=== PATIENT | female | born 2000 ===

== ENCOUNTER 2022-11-27 22:07 | Outpatient (CLI) | payer BC ==
[~2022-11-27] VITALS: Ht 162 cm; Wt 73.6 kg
[2022-11-27 22:32] VITALS: BP 126/59
[2022-11-27 22:34] LABS: BILIRUBIN,URINE NEGATIVE (NEGATIVE); CLARITY,URINE CLEAR; COLOR,URINE YELLOW; GLUCOSE, URINE (UA) NEGATIVE (NEGATIVE); KETONES,URINE NEGATIVE (NEGATIVE); LEUKOCYTE ESTERASE ,URINE NEGATIVE (NEGATIVE); NITRITE,URINE NEGATIVE (NEGATIVE); PROTEIN,URINE NEGATIVE (NEGATIVE)
[2022-11-27] MEDS ORDERED: PREN1TAB19 PO (22:36)
[2022-11-27 22:48] LABS: BACTERIA,URINE TRACE /HPF; SQUAMOUS EPITHELIAL CELL,UR 0-2 /HPF
[2022-11-27 23:25] VITALS: BP 122/67
--- NOTE | 2022-11-28 08:52 | Physician Query-Final Dx ---
Clinic Account Progress/Dx Physician Query: Please give diagnosis Please include # weeks gestation Date of Service Nov 27, 2022 at 22:07 GABINO,AugNov 28, 2022 08:52
== END 2022-11-27 23:30 | disposition home or self-care (01) ==
LOC: LDRP 22:07 → WSo 22:07
PROVIDERS: ATTEND Family Medicine
DX: Z34.92 Encounter for supervision of normal pregnancy, unspecified, second trimester (principal); Z3A.24 24 weeks gestation of pregnancy
CPT/HCPCS: 81000; 99213

== ENCOUNTER 2022-12-20 23:30 | Outpatient (CLI) | payer BC ==
[~2022-12-20] VITALS: Ht 157.5 cm; Wt 75.1 kg
[~2022-12-20 23:30] MED LIST: PREN1TAB19 PO
[2022-12-20 23:57] VITALS: BP 117/56
[2022-12-21 00:01] LABS: BILIRUBIN,URINE NEGATIVE (NEGATIVE); CLARITY,URINE CLEAR; COLOR,URINE YELLOW; GLUCOSE, URINE (UA) NEGATIVE (NEGATIVE); KETONES,URINE NEGATIVE (NEGATIVE); LEUKOCYTE ESTERASE ,URINE 1+ (NEGATIVE); NITRITE,URINE NEGATIVE (NEGATIVE); PROTEIN,URINE NEGATIVE (NEGATIVE)
[2022-12-21 00:10] LABS: AMORPHOUS SEDIMENT,UR FEW AMOR URATES /LPF; BACTERIA,URINE MODERATE /HPF; RBC,URINE 0-2 /HPF; SQUAMOUS EPITHELIAL CELL,UR 25-50 /HPF
[2022-12-21 00:25] VITALS: BP 95/59
--- NOTE | 2022-12-23 08:39 | Physician Query-Final Dx ---
GABINO12/23/22 0839: Clinic Account Progress/Dx Physician Query: Please give diagnosis Please include # weeks gestation Date of Service December 20, 2022 at 23:30 KATHERYN WOLFE DO 12/23/22 0913: Clinic Account Progress/Dx DIAGNOSIS: Diagnosis 27wk GA decreased movement - resolved; reassuring FHT GABINO,AugDecember 23, 2022 08:39 KATHERYN WOLFE DO December 23, 2022 09:13
== END 2022-12-21 00:31 | disposition home or self-care (01) ==
LOC: WSo 23:30 → LDRP 23:32 → WSo 12-21 00:31
PROVIDERS: ATTEND Family Medicine
DX: O26.892 Other specified pregnancy related conditions, second trimester (principal); R10.9 Unspecified abdominal pain; Z3A.27 27 weeks gestation of pregnancy
CPT/HCPCS: 81000

== ENCOUNTER 2023-02-01 18:06 | Emergency (ER) | payer BC ==
[~2023-02-01] VITALS: Ht 152 cm; Wt 73.0 kg
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
[2023-02-01 19:48] VITALS: BP 128/85
== END 2023-02-01 19:48 | disposition home or self-care (01) ==
LOC: EDUNIT# 18:06 → ER 18:09
DX: O9A.213 Injury, poisoning and certain other consequences of external causes complicating pregnancy, third trimester (principal); S30.811A Abrasion of abdominal wall, initial encounter; Z3A.34 34 weeks gestation of pregnancy; V43.52XA Car driver injured in collision with other type car in traffic accident, initial encounter; Y92.410 Unspecified street and highway as the place of occurrence of the external cause

== ENCOUNTER 2023-02-02 01:45 | Outpatient (CLI) | payer BC ==
[~2023-02-02] VITALS: Ht 157 cm; Wt 76.9 kg
[2023-02-02 01:53] VITALS: BP 110/67
== END 2023-02-02 03:07 | disposition home or self-care (01) ==
LOC: WSo 01:45 → LDRP 01:48 → WSo 03:07
PROVIDERS: ATTEND Family Medicine
DX: Z34.93 Encounter for supervision of normal pregnancy, unspecified, third trimester (principal); Z3A.34 34 weeks gestation of pregnancy; V89.2XXA Person injured in unspecified motor-vehicle accident, traffic, initial encounter
CPT/HCPCS: 99213

== ENCOUNTER 2023-03-09 04:25 | Inpatient (IN) | payer BC ==
[~2023-03-09] VITALS: Ht 157.5 cm; Wt 77.5 kg
[2023-03-09] VITALS (70 sets, daily range): BP systolic 89–135; BP diastolic 53–86
[2023-03-09] MEDS ORDERED: MINERAL OIL 30 ML UDC TOP PRN (05:30)
[2023-03-09] MEDS ORDERED: D5 LR 1,000 ML IV SOLN 1,000 ML IV ONE (05:40)
[2023-03-09] MEDS: D5 LR 1,000 ML IV SOLN 1,000 ML IV SCH ×2 (05:47→13:36)
[2023-03-09 05:50] LABS: BASOPHILS % (AUTO) 1 % (0-10); EOSINOPHILS # (AUTO) 0.1 10^3/uL (0.0-0.3); EOSINOPHILS % (AUTO) 2 % (0-10); HEMATOCRIT 32 % (35-52); HEMOGLOBIN 10.7 g/dL (11.5-16.0); LYMPHOCYTES # (AUTO) 2.4 10^3/uL (1.0-4.0); LYMPHOCYTES % (AUTO) 29 % (12-44); MEAN CORPUSCULAR HEMOGLOBIN 27 pg (25-34); MEAN CORPUSCULAR HGB CONC 34 g/dL (32-36); MEAN CORPUSCULAR VOLUME 79 fL (80-99); MEAN PLATELET VOLUME 10.8 fL (9.0-12.2); MONOCYTES # (AUTO) 0.8 10^3/uL (0.0-1.0); MONOCYTES % (AUTO) 10 % (0-12); NEUTROPHILS # (AUTO) 4.9 10^3/uL (1.8-7.8); NEUTROPHILS % (AUTO) 59 % (42-75); PLATELET COUNT 216 10^3/uL (130-400); WHITE BLOOD COUNT 8.3 10^3/uL (4.3-11.0)
[2023-03-09] MEDS ORDERED: CATHETER FLUSH 10 ML SYR IV SCH ×2 (06:00→22:00)
[2023-03-09] MEDS ORDERED: OXYTOCIN PRE-MIX DRIP 500 ML IV ONE (08:19)
[2023-03-09] MEDS: OXYTOCIN PRE-MIX DRIP 500 ML IV SCH ×2 (08:31→21:20)
--- NOTE | 2023-03-09 08:57 | History & Physical-OB ---
OB - Chief Complaint & HPI Date/Time Date of Admission: Date of Admission: Mar 09, 2023 at 05:04 Date seen by a Provider: Mar 09, 2023 Time Seen by a Provider: 07:00 Chief Complaint/History OB-Reason for Admission/Chief: Rupture of Membranes Hx : 1 Expected Date of Delivery: Mar 16, 2023 Gestational Age in Weeks: 39 Gestational Age in Days: 0 Other reason for admission: Patient presented after a gush of clear fluid around 200 AM. She is having some contractions but pain is well controlled. + FM. Allergies and Home Medications Allergies Coded Allergies: No Known Drug Allergies (Unverified , 11/27/22) Patient Home Medication List Home Medication List Reviewed: Yes Vit/Iron Fumarate/FA ( Vitamins Tablet) 28 Mg Iron-800 Mcg Tablet, 1 EACH PO DAILY, (Reported) Entered as Reported by: Ely Childs on 11/27/222235 Last Action: Reviewed OB - History Hx of Present Care: Yes Ultrasounds: Normal mid trimester US Obstetrical Complications: None Medical Complications: None Obstetrical History Hx : 1 Patient Past Medical History N/A Social History/Family History Alcohol Use: Denies Use Recreational Drug Use: No Smoking Cessation: Never smoker 2nd Hand Smoke Exposure: No Immunizations Influenza Vaccine Up-to-Date: Yes; Up-to-Date First/Initial COVID19 Vaccine: YES Second COVID19 Vaccination: YES Rubella: immune RPR/VDRL: Negative GBS Status: Negative HBsAG: Negative OB - Admission Exam Physical Exam Vitals: Vital Signs 03/09/23 03/09/23 05:48 06:20 Temp 36.6 Pulse 68 Resp 18 B/P (MAP) 102/68 (79) Pulse Ox 97 O2 Delivery Room Air HEENT: NCAT Heart: Rhythm Normal Lungs: Clear Abdomen: Gravid Cervical Dilatation: 3cm Effacement: 75% Station: -1 Membranes: Ruptured Amniotic Fluid: Clear Heart Rate: 130's Accelerations: Accelerations Present Decelerations: No Decelerations Short Term Variability: Present Shelter Variability: Average (6-25) Contractions on Admission: >10 Minutes Apart Intensity: Moderate Labs Laboratory Tests Test 03/09/23 05:30 Range/Units White Blood Count 8.3 4.3-11.0 10^3/uL Red Blood Count 4.00 3.80-5.11 10^6/uL Hemoglobin 10.7 L 11.5-16.0 g/dL Hematocrit 32 L 35-52 % Mean Corpuscular Volume 79 L 80-99 fL Mean Corpuscular Hemoglobin 27 25-34 pg Mean Corpuscular Hemoglobin Concent 34 32-36 g/dL Red Cell Distribution Width 13.3 10.0-14.5 % Platelet Count 216 130-400 10^3/uL Mean Platelet Volume 10.8 9.0-12.2 fL Immature Granulocyte % (Auto) 0 % Neutrophils (%) (Auto) 59 42-75 % Lymphocytes (%) (Auto) 29 12-44 % Monocytes (%) (Auto) 10 0-12 % Eosinophils (%) (Auto) 2 0-10 % Basophils (%) (Auto) 1 0-10 % Neutrophils # (Auto) 4.9 1.8-7.8 10^3/uL Lymphocytes # (Auto) 2.4 1.0-4.0 10^3/uL Monocytes # (Auto) 0.8 0.0-1.0 10^3/uL Eosinophils # (Auto) 0.1 0.0-0.3 10^3/uL Basophils # (Auto) 0.0 0.0-0.1 10^3/uL Immature Granulocyte # (Auto) 0.0 0.0-0.1 10^3/uL Syphilis Total Antibody Negative Negative OB - Assessment/Plan/Diagnosis Assessment Assessment: active labor, rupture of membranes Admission Dx Third trimester 39 week gestation SROM Admission Status: Inpatient Order (span 2 midnights) Reason for Inpatient Admission: SROM at home Plan Other Plan 22 yo G1 @ 39.0 wga here with SROM Plan - GBS neg - No change since arrival, ctxs every 10-12 mins, will augment with pitocin - Expect Vaginal delivery - Pain well controlled and patient unsure about epidural ERICA ROSS MD Mar 09, 2023 08:57
[2023-03-09] MEDS ORDERED: LIDOCAINE/EPI 2% 1:200,00 (XYLOCAINE) 20 ML VIAL ONE (13:18)
[2023-03-09] MEDS ORDERED: LACTATED RINGERS 1,000 ML IV ONE (13:51)
[2023-03-09] MEDS ORDERED: fentaNYL 2 mcg/ml BUPIVA 0.125 100 ML ONE (13:51)
[2023-03-09] MEDS ORDERED: BUTORPHANOL INJ 2 MG/ML VIAL IV ONE (14:15)
[2023-03-09] MEDS ORDERED: fentaNYL 2 mcg/ml BUPIVA 0.125 100 ML EPI SCH (14:45)
[2023-03-09] MEDS ORDERED: METOCLOPRAMIDE INJ 10 MG/2 ML (REGLAN) IV PRN (14:45)
[2023-03-09] MEDS ORDERED: LACTATED RINGERS 1,000 ML IV SCH (14:45)
[2023-03-09] MEDS ORDERED: diphenhydrAMINE INJ 50 MG/ML VIAL IV PRN (14:45)
[2023-03-09] MEDS ORDERED: ONDANSETRON 4 MG/2 ML (SDV) Z0FRAN IV PRN (14:45)
[2023-03-09] MEDS ORDERED: NALOXONE 0.4 MG/ML 1 ML (NARCAN) VIAL IV PRN ×2 (14:45)
--- NOTE | 2023-03-09 21:53 | OB Labor & Delivery Record ---
Vag Delivery Note Vag Delivery Note Date of Delivery: 03/09/23 Preoperative Diagnosis: Olga Montelongo is a 22 /Para / ,Gestational Age (wks)39with 0 days Postoperative Diagnosis: Same Surgeon: IRA GREGG Anesthesia: Epidural Delivery Type: Findings: Viable female , apgars 8/9, weight pending Lacerations: bilateral periurethral Intact placenta with 3 vessel cord. No nuchal cord, body cord or shoulder dystocia Estimated Blood Loss: 500 ml Complications: None Condition: Stable Description of Procedure: The patient is a 22 year old female who presented with spontaneous prelabor rupture of membranes. She was admitted and informed consent was obtained. Her labor course was remarkable for augmentation with pitocin. She progressed to complete dilatation and began to push. She was then set up for delivery. The infant's head was delivered atraumatically in the ELAYNE position. The shoulders and remainder of the 's body were then delivered without difficulty. Upon delivery, the infant was vigorous and placed on maternal chest and the mouth and nares were bulb suctioned. After a delay cord was doubly clamped and cut and the remained on maternal chest. An intact placenta with 3-vessel cord delivered via Armando and there was found to be minimal bleeding from the uterus.~ Vigorous fundal massage was performed and the fundus was found to be firm. IV oxytocin was given. Examination of the vagina and perineum revealed bilateral periurethral lacerations, one on the right bleeding briskly, repaired in the usual fashion with 3-0 vicryl rapide suture. Following the repair, sponge, instrument and needle counts were correct. Mom and baby were both in stable condition in the labor suite. Vitals - Labs Vital Signs - I&O Vital Signs Date Time Temp Pulse Resp B/P (MAP) Pulse Ox O2 Delivery O2 Flow Rate FiO2 03/09/23 20:17 37.2 63 18 113/73 (86) 99 Room Air 03/09/23 20:00 74 18 115/79 (91) 100 Room Air 03/09/23 19:45 67 18 118/75 (89) 98 Room Air 03/09/23 19:30 70 18 110/70 (83) 99 Room Air 03/09/23 19:16 75 18 109/69 (82) 99 Room Air 03/09/23 19:00 37.0 68 18 113/65 (81) 99 Room Air 03/09/23 18:46 59 18 101/65 (77) 98 Room Air 03/09/23 18:30 63 18 103/57 (72) 98 Room Air 03/09/23 18:17 60 18 101/59 (73) 98 Room Air 03/09/23 18:00 62 18 111/57 (75) 99 Room Air 03/09/23 17:46 57 18 103/63 (76) 98 Room Air 03/09/23 17:31 62 18 98/62 (74) 97 Room Air 03/09/23 17:15 61 18 90/57 (68) 98 Room Air 03/09/23 17:01 54 18 105/59 (74) 98 Room Air 03/09/23 16:53 36.8 03/09/23 16:45 61 18 101/71 (81) 98 Room Air 03/09/23 16:30 53 18 100/64 (76) 98 Room Air 03/09/23 16:16 53 18 102/65 (77) 98 Room Air 03/09/23 16:01 68 18 109/60 (76) 98 Room Air 03/09/23 15:46 63 18 100/64 (76) 98 Room Air 03/09/23 15:30 56 18 99/56 (70) 98 Room Air 03/09/23 15:13 36.7 63 18 89/57 (68) 98 Room Air 03/09/23 15:09 59 18 104/56 (72) 98 Room Air 03/09/23 15:06 66 18 92/53 (66) 97 Room Air 03/09/23 14:59 65 18 97/56 (70) 98 Room Air 03/09/23 14:54 86 18 97/59 (72) 98 Room Air 03/09/23 14:45 64 18 102/56 (71) Room Air 03/09/23 14:42 36.7 72 18 102/57 (72) 98 Room Air 03/09/23 14:39 77 18 106/58 (74) 98 Room Air 03/09/23 14:36 72 18 101/63 (76) 98 Room Air 03/09/23 14:33 36.8 67 18 102/60 (74) 99 Room Air 03/09/23 14:31 76 18 111/67 (82) 99 Room Air 03/09/23 14:27 82 18 111/75 (87) 99 Room Air 03/09/23 14:24 76 18 114/76 (89) 99 Room Air 03/09/23 14:21 60 18 110/78 (89) Room Air 03/09/23 14:18 70 18 129/80 (96) 99 Room Air 03/09/23 14:16 71 18 135/72 (93) Room Air 03/09/23 14:00 78 18 117/73 (88) Room Air 03/09/23 13:45 71 18 122/86 (98) Room Air 03/09/23 13:27 37.0 03/09/23 13:15 75 18 121/75 (90) Room Air 03/09/23 13:00 86 18 116/67 (83) Room Air 03/09/23 12:30 64 18 112/54 (73) Room Air 03/09/23 12:01 36.7 57 18 107/57 (74) Room Air 03/09/23 11:46 68 18 117/56 (76) Room Air 03/09/23 11:30 69 18 107/56 (73) Room Air 03/09/23 11:15 67 18 107/58 (74) Room Air 03/09/23 11:00 58 18 98/53 (68) Room Air 03/09/23 10:47 36.6 64 18 108/56 (73) Room Air 03/09/23 10:30 59 18 109/66 (80) Room Air 03/09/23 10:16 78 18 112/69 (83) Room Air 03/09/23 10:00 56 18 110/70 (83) Room Air 03/09/23 09:45 57 18 111/74 (86) Room Air 03/09/23 09:30 59 18 118/78 (91) Room Air 03/09/23 09:16 96 18 126/72 (90) Room Air 03/09/23 09:00 65 18 112/70 (84) Room Air 03/09/23 08:46 67 18 124/73 (90) Room Air 03/09/23 08:27 36.6 63 18 111/71 (84) Room Air 03/09/23 06:20 68 18 102/68 (79) 97 Room Air 03/09/23 05:48 36.6 67 18 111/72 (85) 98 Room Air 03/09/23 05:04 36.7 79 18 113/77 97 Room Air 03/09/23 04:40 36.7 79 18 97 Room Air Labs Laboratory Tests 03/09/23 05:30: White Blood Count 8.3, Red Blood Count 4.00, Hemoglobin 10.7L, Hematocrit 32L, Mean Corpuscular Volume 79L, Mean Corpuscular Hemoglobin 27, Mean Corpuscular Hemoglobin Concent 34, Red Cell Distribution Width 13.3, Platelet Count 216, Mean Platelet Volume 10.8, Immature Granulocyte % (Auto) 0, Neutrophils (%) (Auto) 59, Lymphocytes (%) (Auto) 29, Monocytes (%) (Auto) 10, Eosinophils (%) (Auto) 2, Basophils (%) (Auto) 1, Neutrophils # (Auto) 4.9, Lymphocytes # (Auto) 2.4, Monocytes # (Auto) 0.8, Eosinophils # (Auto) 0.1, Basophils # (Auto) 0.0, Immature Granulocyte # (Auto) 0.0, Syphilis Total Antibody Negative IRA GREGG MD Mar 09, 2023 21:53
[2023-03-09] MEDS ORDERED: BENZOCAINE/MENTHOL (DERMOPLAST) 56 ML CAN TP PRN (22:00)
[2023-03-09] MEDS ORDERED: ACETAMINOPHEN 500 MG TABLET PO PRN (22:00)
[2023-03-09] MEDS ORDERED: WITCH HAZEL(TUCKS) 40 EA JAR TOP PRN (22:00)
[2023-03-09] MEDS ORDERED: OXYTOCIN PRE-MIX DRIP 500 ML IV SCH (22:00)
[2023-03-09] MEDS: IBUPROFEN 600 MG (MOTRIN) TAB PO SCH (23:43)
[2023-03-10 04:03] VITALS: BP 111/52
[2023-03-10 05:44] LABS: BASOPHILS % (AUTO) 0 % (0-10); EOSINOPHILS # (AUTO) 0.1 10^3/uL (0.0-0.3); EOSINOPHILS % (AUTO) 1 % (0-10); HEMATOCRIT 26 % (35-52); HEMOGLOBIN 8.8 g/dL (11.5-16.0); LYMPHOCYTES # (AUTO) 2.2 10^3/uL (1.0-4.0); LYMPHOCYTES % (AUTO) 18 % (12-44); MEAN CORPUSCULAR HEMOGLOBIN 27 pg (25-34); MEAN CORPUSCULAR HGB CONC 34 g/dL (32-36); MEAN CORPUSCULAR VOLUME 79 fL (80-99); MEAN PLATELET VOLUME 10.7 fL (9.0-12.2); MONOCYTES # (AUTO) 0.9 10^3/uL (0.0-1.0); MONOCYTES % (AUTO) 8 % (0-12); NEUTROPHILS # (AUTO) 8.6 10^3/uL (1.8-7.8); NEUTROPHILS % (AUTO) 72 % (42-75); PLATELET COUNT 167 10^3/uL (130-400); WHITE BLOOD COUNT 11.9 10^3/uL (4.3-11.0)
[2023-03-10] MEDS: PRENATAL VITAMIN 1 EA TAB PO SCH (06:27)
[2023-03-10] MEDS: IBUPROFEN 600 MG (MOTRIN) TAB PO SCH ×3 (06:27→18:49)
[2023-03-10 08:34] VITALS: BP 111/72
[2023-03-10] MEDS: DOCUSATE SODIUM 100 MG CAPSULE PO SCH ×2 (08:35→21:25)
--- NOTE | 2023-03-10 09:18 | Anesthesia-Regional Post-Op ---
Regional Patient Condition Mental Status: Alert, Oriented x3 Circulation: Same as Pre-Op Headache: Absent Sensation: Full Recovery Motor Block: Absent Post Op Complications Complications None Follow Up Care/Instructions Patient Instructions None needed. Anesthesia/Patient Condition Patient is doing well, no complaints, stable vital signs, no apparent adverse anesthesia problems. No complications reported per nursing. CALVIN SOLIS CRNA Mar 10, 2023 09:18
--- NOTE | 2023-03-10 12:18 | Postpartum Progress Note ---
Note Note Day # 1 Subjective: Patient is without complaints. Ambulating, voiding. Tolerating a regular diet without nausea or vomiting. Normal lochia. Pain is well controlled with oral pain medications. Breast feeding. Objective: Physical Exam: General - Alert and oriented, no apparent distress Abdomen - Soft, appropriately tender to palpation, non-distended, fundus firm at umbilicus Extremities - no edema, negative Kym's bilaterally Assessment: 22 yo G1 now P1 post- day # 1, status post spontaneous vaginal delivery. Recovering well, hemodynamically stable Asymptomatic Anemia of acute blood loss Plan: Routine care. Encourage breast feeding, consult placed Encourage ambulation. Venofer x1 dose ordered today Plan for d.c tomorrow AM and 6 week f.u with [facility] Vitals - Labs Vital Signs - I&O Vital Signs Date Time Temp Pulse Resp B/P (MAP) Pulse Ox O2 Delivery O2 Flow Rate FiO2 03/10/23 08:34 36.5 84 18 111/72 (85) 99 Room Air 03/10/23 04:03 36.3 84 18 111/52 (71) 98 Room Air 03/09/23 22:45 99 18 120/77 (91) Room Air 03/09/23 22:30 71 18 111/66 (81) Room Air 03/09/23 22:15 60 18 110/69 (83) Room Air 03/09/23 22:00 75 18 114/63 (80) Room Air 03/09/23 21:45 75 18 114/63 (80) Room Air 03/09/23 21:30 68 18 112/69 (83) 99 Room Air 03/09/23 21:15 82 18 112/70 (84) 99 Room Air 03/09/23 21:00 84 18 121/75 (90) 99 Room Air 03/09/23 20:45 83 18 120/76 (91) 100 Room Air 03/09/23 20:30 62 18 117/78 (91) 99 Room Air 03/09/23 20:17 37.2 63 18 113/73 (86) 99 Room Air 03/09/23 20:00 74 18 115/79 (91) 100 Room Air 03/09/23 19:45 67 18 118/75 (89) 98 Room Air 03/09/23 19:30 70 18 110/70 (83) 99 Room Air 03/09/23 19:16 75 18 109/69 (82) 99 Room Air 03/09/23 19:00 37.0 68 18 113/65 (81) 99 Room Air 03/09/23 18:46 59 18 101/65 (77) 98 Room Air 03/09/23 18:30 63 18 103/57 (72) 98 Room Air 03/09/23 18:17 60 18 101/59 (73) 98 Room Air 03/09/23 18:00 62 18 111/57 (75) 99 Room Air 03/09/23 17:46 57 18 103/63 (76) 98 Room Air 03/09/23 17:31 62 18 98/62 (74) 97 Room Air 03/09/23 17:15 61 18 90/57 (68) 98 Room Air 03/09/23 17:01 54 18 105/59 (74) 98 Room Air 03/09/23 16:53 36.8 03/09/23 16:45 61 18 101/71 (81) 98 Room Air 03/09/23 16:30 53 18 100/64 (76) 98 Room Air 03/09/23 16:16 53 18 102/65 (77) 98 Room Air 03/09/23 16:01 68 18 109/60 (76) 98 Room Air 03/09/23 15:46 63 18 100/64 (76) 98 Room Air 03/09/23 15:30 56 18 99/56 (70) 98 Room Air 03/09/23 15:13 36.7 63 18 89/57 (68) 98 Room Air 03/09/23 15:09 59 18 104/56 (72) 98 Room Air 03/09/23 15:06 66 18 92/53 (66) 97 Room Air 03/09/23 14:59 65 18 97/56 (70) 98 Room Air 03/09/23 14:54 86 18 97/59 (72) 98 Room Air 03/09/23 14:45 64 18 102/56 (71) Room Air 03/09/23 14:42 36.7 72 18 102/57 (72) 98 Room Air 03/09/23 14:39 77 18 106/58 (74) 98 Room Air 03/09/23 14:36 72 18 101/63 (76) 98 Room Air 03/09/23 14:33 36.8 67 18 102/60 (74) 99 Room Air 03/09/23 14:31 76 18 111/67 (82) 99 Room Air 03/09/23 14:27 82 18 111/75 (87) 99 Room Air 03/09/23 14:24 76 18 114/76 (89) 99 Room Air 03/09/23 14:21 60 18 110/78 (89) Room Air 03/09/23 14:18 70 18 129/80 (96) 99 Room Air 03/09/23 14:16 71 18 135/72 (93) Room Air 03/09/23 14:00 78 18 117/73 (88) Room Air 03/09/23 13:45 71 18 122/86 (98) Room Air 03/09/23 13:27 37.0 03/09/23 13:15 75 18 121/75 (90) Room Air 03/09/23 13:00 86 18 116/67 (83) Room Air 03/09/23 12:30 64 18 112/54 (73) Room Air I & O 03/10/23 07:00 Intake Total 2000 ml Balance 2000 ml Labs Laboratory Tests 03/10/23 05:32: White Blood Count 11.9H, Red Blood Count 3.28L, Hemoglobin 8.8L, Hematocrit 26L, Mean Corpuscular Volume 79L, Mean Corpuscular Hemoglobin 27, Mean Corpuscular Hemoglobin Concent 34, Red Cell Distribution Width 13.4, Platelet Count 167, Mean Platelet Volume 10.7, Immature Granulocyte % (Auto) 0, Neutrophils (%) (Auto) 72, Lymphocytes (%) (Auto) 18, Monocytes (%) (Auto) 8, Eosinophils (%) (Auto) 1, Basophils (%) (Auto) 0, Neutrophils # (Auto) 8.6H, Lymphocytes # (Auto) 2.2, Monocytes # (Auto) 0.9, Eosinophils # (Auto) 0.1, Basophils # (Auto) 0.0, Immature Granulocyte # (Auto) 0.1 ERICA ROSS MD Mar 10, 2023 12:18
[2023-03-10] MEDS ORDERED: IRON SUCROSE 200 MG/10 ML (VENOFER) VIAL IV NR (12:30)
[2023-03-10 12:55] VITALS: BP 114/62
[2023-03-10 17:00] VITALS: BP 108/62
[2023-03-10 21:26] VITALS: BP 109/64
[2023-03-11] MEDS: IBUPROFEN 600 MG (MOTRIN) TAB PO SCH ×2 (00:16→06:39)
[2023-03-11 04:07] VITALS: BP 102/56
[2023-03-11] MEDS: PRENATAL VITAMIN 1 EA TAB PO SCH (06:39)
[2023-03-11 08:00] VITALS: BP 119/65
[2023-03-11] MEDS: DOCUSATE SODIUM 100 MG CAPSULE PO SCH (08:00)
--- NOTE | 2023-03-11 09:21 | Discharge Summary ---
Diagnosis/Chief Complaint Date of Admission Mar 09, 2023 at 05:04 Date of Discharge 03/11/23 Admission Diagnosis Admission Diagnosis Third trimester 39 weeks gestation Discharge Diagnosis 39 completed weeks gestation Discharge Summary-Simple/Stand Procedures Epidural Placement Discharge Physical Examination Allergies: Coded Allergies: No Known Drug Allergies (Unverified , 11/27/22) Vitals & I&Os Vital Sign - Last 12Hours Date Time Temp Pulse Resp B/P (MAP) Pulse Ox O2 Delivery O2 Flow Rate FiO2 03/11/23 08:00 36.3 68 18 119/65 (83) 99 Room Air General Appearance: Alert, Oriented X3, No Acute Distress Respiratory: Clear to Auscultation, Normal Air Movement Cardiovascular: Regular Rate, No Murmurs Abdominal: Normal Bowel Sounds, Soft, No Tenderness, Other (Fundus firm and below umbilicus) Extremities: No Edema, No Tenderness/Swelling Neuro: Normal Speech, Cranial Nerves 3-12 NL Psych/Mental Status: Mental Status NL, Mood NL Hospital Course See final discharge diagnosis. Discharge Condition at discharge Stable Instructions to patient/family Please see electronic discharge instructions given to patient. Discharge Medications Reviewed and agree with Discharge Medication list on patient's Discharge Instruction sheet Copy Copies To 1: IRA GREGG MD, HOLLY R MD Mar 11, 2023 09:21
[2023-03-11] MEDS ORDERED: FERR-84 PO (09:23)
[2023-03-11] MEDS ORDERED: DOCU100C37 PO (09:23)
[2023-03-11] MEDS ORDERED: IBUP-844 PO (09:23)
[2023-03-11] MEDS ORDERED: ACET-93 PO (09:23)
--- NOTE | 2023-03-11 09:24 | Discharge Summary ---
Discharge Inst-[facility] Reconcile Patient Problems Problems Reviewed?: Yes Depart Medications New, Converted or Re-Newed RX: Transmitted to Pharmacy New Medications: Ferrous Sulfate (Iron) 325 Mg (65 Mg Iron) Tablet 325 MG PO DAILY, #30 TAB Acetaminophen (Acetaminophen) 500 Mg Tablet 1000 MG PO Q8H PRN for pain, #30 TAB Docusate Sodium (Docusate Sodium) 100 Mg Capsule 100 MG PO BID, #14 CAP Ibuprofen (Ibu) 600 Mg Tablet 600 MG PO Q6HR, #30 TAB Continued Medications: Vit/Iron Fumarate/FA ( Vitamins Tablet) 28 Mg Iron-800 Mcg Tablet 1 EACH PO DAILY, TAB Follow Up/Instructions Goal/Follow Up: F/u 6 weeks with [facility] Activity Activity: Activity as Tolerated Driving Instructions: You May Drive NO SMOKING: NO SMOKING Nothing Inside Vagina: No Douching, No [place], No Tampons Diet Discharge Diet: No Restrictions Symptoms to Report to : Bleeding Excessive, Fever Over 101 Degrees F Copies To 1: ERICA ROSS MD, HOLLY R MD Mar 11, 2023 09:24
[2023-03-11 11:06] VITALS: BP 119/65
== END 2023-03-11 11:06 | disposition home or self-care (01) | DRG 806 ==
LOC: WSo 04:25 → LDRP 04:26 → WSo 05:03 → LDRP 05:04
PROVIDERS: ADMIT Family Medicine; ATTEND Family Medicine
PROC: 10E0XZZ Delivery of Products of Conception, External Approach (ICD-10-PCS; principal; 2023-03-09)
PROC: 0UQMXZZ Repair Vulva, External Approach (ICD-10-PCS; 2023-03-09)
DX: O71.82 Other specified trauma to perineum and vulva (principal); D62 Acute posthemorrhagic anemia; Z37.0 Single live birth; Z3A.39 39 weeks gestation of pregnancy; O90.81 Anemia of the puerperium
CPT/HCPCS: 36415; 85025; 86780; 86850; 86900; 86901; 99213